=== PATIENT | male | born 1960 | race Caucasian/White ===

== ENCOUNTER 2018-10-27 17:48 | Emergency (ER) | payer OTHER ==
--- NOTE | 2018-10-27 18:04 | ER Report ---
History and Physical Time Seen By MD: 18:03 Hx. of Stated Complaint: PT REPORTS HE WAS CALLED FROM PCP FOR HIGH POTASSIUM AND CREATININE RESULTS HPI/ROS CHIEF COMPLAINT: Elevated creatinine, BUN, and potassium HISTORY OF PRESENT ILLNESS: Patient referred to the emergency department from his primary care physician, Dr. Leblanc, evaluation of elevated creatinine at 8.9, potassium of 6 and BUN of 73. Patient himself is symptom-free has no complaints. The lab values were discovered on routine blood work. Patient does h ave a history of hypertension as well as polycystic kidney disease which is also apparent in his mother and grandfather. He states he was diagnosed approximately 13 years ago. Patient denies any fevers or chills. Denies chest pain or shortness of breath. Denies abdominal pain. Denies any dysuria. Denies any blood or mucus in the stool. REVIEW OF SYSTEMS: Constitutional: No fever, no chills. Eyes: No discharge. ENT: No sore throat. Cardiovascular: No chest pain, no palpitations. Respiratory: No cough, no shortness of breath. Gastrointestinal: No abdominal pain, no vomiting. Genitourinary: No hematuria. [place] Musculoskeletal: No back pain. Skin: No rashes. Neurological: No headache. Allergies: Coded Allergies: No Known Drug Allergies (Unverified , 10/27/18) Home Meds Reported Medications Amlodipine Besylate/Benazepril (LOTREL 5-20 MG CAPSULE) 1 Each Capsule, 1 EACH PO, CAPSULE 10/27/18 Past Medical/Surgical History History of polycystic kidney disease. History of hypertension Constitutional Vital Sign - Last 24 Hours 10/27/18 10/27/18 10/27/18 10/27/18 17:55 18:03 18:18 18:30 Pulse 78 76 81 Resp 16 13 20 B/P (MAP) 147/93 (111) 142/87 (105) Pulse Ox 93 94 95 O2 Delivery Room Air 10/27/18 10/27/18 10/27/18 10/27/18 18:33 18:48 19:00 19:03 Pulse 88 83 79 Resp 33 20 16 B/P (MAP) 139/92 (108) Pulse Ox 93 95 91 10/27/18 10/27/18 10/27/18 19:18 19:30 19:33 Pulse 78 77 Resp 17 22 B/P (MAP) 149/102 (118) Pulse Ox 94 94 Physical Exam General/Constitutional: Patient is awake, alert, nontoxic and in no acute respiratory distress. Head: Normocephalic and atraumatic. Eyes: Conjunctival clear, Pupils are equal and reactive to light. Extraocular muscles are intact and symmetrical. Sclera are clear and anicteric. Ears:External canals are clear. Tympanic membranes are clear with normal landmarks and light reflex. Nares: No rhinorrhea or bleeding. Turbinates are pink and moist. Oropharyngeal: Mucous membranes are moist. There is no pharyngeal erythema or exudate. There are no palatal petechiae. Uvula is midline and symmetrical. Neck: Supple, no adenopathy. Cardiovascular: Heart is regular rate and rhythm without audible murmurs, rubs or gallops. Pulmonary: Lungs are clear to auscultation bilaterally. There are no wheezes, rales, or rhonchi. Chest rise is symmetrical Abdomen: Soft, nontender, no guarding or peritoneal signs. Extremities: No gross deformities, No peripheral cyanosis. Able to move all 4 extremities. Neuro: Alert and oriented X3, Skin: No rashes, skin is warm dry and well perfused. Medical Decision Making Data Points Result Diagram: 10/27/18 1820 10/27/18 1820 Laboratory Hematology Test 10/27/18 18:20 Red Blood Count 4.37 M/uL (4.00-5.60) Mean Corpuscular Volume 88.3 fL (80.0-96.0) Mean Corpuscular Hemoglobin 28.7 pg (26.0-33.0) Mean Corpuscular Hemoglobin Concent 32.6 g/dL (32.0-36.0) Red Cell Distribution Width 13.7 % (11.5-14.5) Mean Platelet Volume 8.3 fL (7.2-11.1) Neutrophils (%) (Auto) 62.6 % (39.4-72.5) Lymphocytes (%) (Auto) 24.4 % (17.6-49.6) Monocytes (%) (Auto) 9.0 % (4.1-12.4) Eosinophils (%) (Auto) 2.9 % (0.4-6.7) Basophils (%) (Auto) 1.1 % (0.3-1.4) Nucleated RBC Relative Count (auto) 0.0 /100WBC Neutrophils # (Auto) 4.5 K/uL (2.0-7.4) Lymphocytes # (Auto) 1.7 K/uL (1.3-3.6) Monocytes # (Auto) 0.6 K/uL (0.3-1.0) Eosinophils # (Auto) 0.2 K/uL (0.0-0.5) Basophils # (Auto) 0.1 K/uL (0.0-0.1) Nucleated RBC Absolute Count (auto) 0.00 K/uL Sodium Level 143 mmol/L (137-145) Potassium Level 5.6 mmol/L (3.5-5.0) Chloride Level 109 mmol/L (98-107) Carbon Dioxide Level 16 mmol/L (22-30) Blood Urea Nitrogen 71 mg/dl (9-21) Creatinine 10.10 mg/dl (0.66-1.25) Glomerular Filtration Rate Calc 5.3 Random Glucose 84 mg/dl (75-110) Calcium Level 7.3 mg/dl (8.4-10.2) Total Bilirubin 0.3 mg/dl (0.2-1.3) Aspartate Amino Transf (AST/SGOT) 15 U/L (0-35) Alanine Aminotransferase (ALT/SGPT) 17 U/L (0-56) Alkaline Phosphatase 87 U/L (0-126) Total Protein 7.8 g/dl (6.3-8.2) Albumin 4.8 g/dl (3.5-5.0) Chemistry Test 10/27/18 18:20 White Blood Count 7.1 k/uL (4.5-11.0) Red Blood Count 4.37 M/uL (4.00-5.60) Hemoglobin 12.6 g/dL (14.0-18.0) Hematocrit 38.6 % (42.0-52.0) Mean Corpuscular Volume 88.3 fL (80.0-96.0) Mean Corpuscular Hemoglobin 28.7 pg (26.0-33.0) Mean Corpuscular Hemoglobin Concent 32.6 g/dL (32.0-36.0) Red Cell Distribution Width 13.7 % (11.5-14.5) Platelet Count 216 K/uL (150-450) Mean Platelet Volume 8.3 fL (7.2-11.1) Neutrophils (%) (Auto) 62.6 % (39.4-72.5) Lymphocytes (%) (Auto) 24.4 % (17.6-49.6) Monocytes (%) (Auto) 9.0 % (4.1-12.4) Eosinophils (%) (Auto) 2.9 % (0.4-6.7) Basophils (%) (Auto) 1.1 % (0.3-1.4) Nucleated RBC Relative Count (auto) 0.0 /100WBC Neutrophils # (Auto) 4.5 K/uL (2.0-7.4) Lymphocytes # (Auto) 1.7 K/uL (1.3-3.6) Monocytes # (Auto) 0.6 K/uL (0.3-1.0) Eosinophils # (Auto) 0.2 K/uL (0.0-0.5) Basophils # (Auto) 0.1 K/uL (0.0-0.1) Nucleated RBC Absolute Count (auto) 0.00 K/uL Glomerular Filtration Rate Calc 5.3 Calcium Level 7.3 mg/dl (8.4-10.2) Total Bilirubin 0.3 mg/dl (0.2-1.3) Aspartate Amino Transf (AST/SGOT) 15 U/L (0-35) Alanine Aminotransferase (ALT/SGPT) 17 U/L (0-56) Alkaline Phosphatase 87 U/L (0-126) Total Protein 7.8 g/dl (6.3-8.2) Albumin 4.8 g/dl (3.5-5.0) ED Course/Re-evaluation ED Course 10/27/2018 6:16:10 pm patient with elevated creatinine, BUN and potassium. EKG shows normal sinus rhythm with ventricular rate of 70 bpm. There is some slight peaking of the T waves in V2 and V3. Repeat blood work at this time likely transfer to [facility] for emergent dialysis. 10/27/2018 7:32:46 pm patient discussed with Dr. Reeves who is the hospit alist at [facility] ([place], [place]), the patient will go directly to [facility] by private [place]) be driving. We will print up lab work as well as ED course. Patient to be admitted to [facility] floor there Decision to Disposition Date: Oct 27, 2018 Decision to Disposition Time: 19:34 Depart Departure Latest Vital Signs Vital Signs Date Time Temp Pulse Resp B/P (MAP) Pulse Ox O2 Delivery O2 Flow Rate FiO2 10/27/18 19:33 77 22 94 10/27/18 19:30 149/102 (118) 10/27/18 17:55 Room Air Impression: Primary Impression: Acute renal failure (ARF) Condition: Condition Unchanged Disposition: XFER TO [facility] (to [facility] by POV) Additional Instructions: Go directly to [facility] ([place], [place]) for direct admission to the Medical/Surgical floor under the hospitalist Dr Haji. [address] [place] [address], [place] [address] You will most likely need to go to the Emergency Room for intake, but be sure you let them know you are a direct admission for Dr Haji for a diagnosis of acute renal failure Problem Qualifiers Primary Impression: Acute renal failure (ARF) Acute renal failure type: unspecified Qualified Codes: N17.9 - Acute kidney failure, unspecified ANDREW TAYLOR MD Oct 27, 2018 18:04
[2018-10-27] MEDS ORDERED: AMLO-110 PO (18:08)
--- NOTE | 2018-10-27 18:10 | EKG ---
FACILITY: [facility] [place] PATIENT NAME: YURI KOO : [id number] MR: [id number] V: [id number] EXAM DATE: ORDERING PHYSICIAN: SALOME CAMACHO TECHNOLOGIST: VERONICA Test Reason : HIGH POTASSIUM Blood Pressure : / mmHG Vent. Rate : 070 BPM Atrial Rate : 070 BPM P-R Int : 146 ms QRS Dur : 090 ms QT Int : 380 ms P-R-T Axes : 043 035 049 degrees QTc Int : 410 ms Normal sinus rhythm Normal ECG No previous ECGs available Confirmed by Vance Urban [id number] on 10/27/2018 7:01:52 PM Referred By: JANICE Confirmed By:Vance Crisostomo
[2018-10-27 18:38] LABS: PLATELET COUNT, AUTOMATED 216 K/uL (150-450)
[2018-10-27 19:30] VITALS: BP 149/102
== END 2018-10-27 20:17 | disposition short-term general hospital (02) ==
LOC: ER 18:08
DX: N17.9 Acute kidney failure, unspecified (principal); I10 Essential (primary) hypertension
CPT/HCPCS: 82040; 82247; 82310; 82374; 82435; 82565; 82947; 84075; 84132; 84155; 84295; 84450; 84460; 84520; 85025; 93005; 99285

== ENCOUNTER → 2018-11-05 | Outpatient (CLI) | payer OTHER ==
[~2018-11-05] MED LIST: AMLO-110 PO
== END ==
LOC: LAB 16:11
PROVIDERS: ATTEND Internal Medicine
DX: N18.9 Chronic kidney disease, unspecified (principal)
CPT/HCPCS: 36415; 82310; 82374; 82435; 82565; 82947; 84132; 84295; 84520

== ENCOUNTER → 2018-11-13 | Outpatient (CLI) | payer OTHER | LOC: LAB 16:08 | DX: N18.9 Chronic kidney disease, unspecified (principal) | CPT/HCPCS: 36415; 82310; 82374; 82435; 82565; 82947; 84132; 84295; 84520 ==

== ENCOUNTER → 2018-11-20 | Outpatient (CLI) | payer OTHER | LOC: LAB 16:12 | PROVIDERS: ATTEND Internal Medicine | DX: N18.9 Chronic kidney disease, unspecified (principal) | CPT/HCPCS: 36415; 82310; 82374; 82435; 82565; 82947; 84132; 84295; 84520 ==

== ENCOUNTER → 2018-11-27 | Outpatient (CLI) | payer OTHER | LOC: LAB 16:28 | DX: N18.5 Chronic kidney disease, stage 5 (principal) | CPT/HCPCS: 36415; 82040; 82310; 82374; 82435; 82565; 82947; 84100; 84132; 84295; 84520 ==

== ENCOUNTER → 2018-12-10 | Outpatient (CLI) | payer OTHER | LOC: LAB 16:07 | PROVIDERS: ATTEND Internal Medicine Nephrology | DX: N18.5 Chronic kidney disease, stage 5 (principal) | CPT/HCPCS: 36415; 82040; 82310; 82374; 82435; 82565; 82947; 84100; 84132; 84295; 84520 ==